=== PATIENT | female | born 1960 | race Caucasian/White ===

== ENCOUNTER 2024-03-26 06:26 | Outpatient (CLI) | payer MEDICARE, MEDICAID ==
[2024-03-26] MEDS ORDERED: LIDOcaine 1% 30ml preserv. free vial ONE (06:37)
[2024-03-26] MEDS ORDERED: iohexol 300 MG/1 ML 50ml polymer ONE (06:37)
[2024-03-26] MEDS ORDERED: GADOTERATE MEGLUMINE 7.5 MMOL/15 ML VIAL IV ONE (06:37)
[2024-03-26] MEDS ORDERED: LIDOcaine 1% (10mg/ml) 2ml vial ONE (06:47)
== END 2024-03-26 23:59 | disposition home or self-care (01) ==
LOC: RAD 06:26
PROVIDERS: ATTEND Specialist
DX: M75.101 Unspecified rotator cuff tear or rupture of right shoulder, not specified as traumatic (principal); M19.011 Primary osteoarthritis, right shoulder; Z96.611 Presence of right artificial shoulder joint
CPT/HCPCS: 23350; 73201; 77002; J2001; Q9967; 77003; A9575; J3490